=== PATIENT | female | born 1995 | race Caucasian/White ===

== ENCOUNTER 2024-12-02 07:51 | Outpatient (CLI) | payer BC, SELFPAY ==
--- OUTSIDE RECORDS SUMMARY | 2024-12-02 07:53 | XMS_ITS ---
Author Organization [facility] (ClinicalSummary Clone) Address Unknown Care Team Providers Care Freight Claim Investigator Name Role Phone Unavailable Primary Care Physician Unavailab le Results * [UNITY] CARRIER SCREEN Performed by: Meilele Component Value Range Date Sickle Cell Disease/Beta-Thalassemia/Hemo globinopathies carrier screen NEGATIVE 09/09/2024 12:59 pm UTC Alpha-Thalassemia carrier screen NEGATIVE 09/09/2024 12:59 pm UTC Cystic Fibrosis carrier screen NEGATIVE 09/09/2024 12:59 pm UTC Spinal Muscular Atrophy carrier screen NEGATIVE 2 SMN1 copies, SNP not present 09/09/2024 12:59 pm UT For detailed report, see PDF See PDF 09/09/2024 12:59 pm UTC 09/09/2024 12:5 9 pm UT Social History Observation Value Start Date End Date
--- OUTSIDE RECORDS SUMMARY | 2024-12-02 07:53 | XMS_ITS ---
Author Organization [facility] (ClinicalSummary Clone) Address Unknown Care Team Providers Care Embossing Toolsetter Name Role Phone Unavailable Primary Care Physician Unavailab le Results * [UNITY] ANEUPLOIDY NIPT Performed by: Wearable Intelligence Component Value Range Date Fraction 9.6% 08/30/2024 06 :37 am UTC 22q11.2 Microdeletion LOW RISK <1 in 10,000 08/30/2024 06:37 am UTC Sex Chromosome Aneuploidy NOT DETECTED 06:37 am UTC Monosomy X LOW RISK <1 in 10,000 2024 06:37 am UTC Trisomy 13 LOW RISK <1 in 10,000 2024 06:37 am UTC Trisomy 18 LOW RISK <1 in 10,000 2024 06:37 am UTC Trisomy 21 LOW RISK <1 in 10,000 2024 06:37 am UTC Sex FEMALE 08/30/2024 06:3 7 am UTC Gestation QUIJANO 08/31/19 06:37 am UT For detailed report, see PDF See PDF 08/30/2024 06:37 am UTC 08/30/2024 06:3 7 am UT Social History Observation Value Start Date End Date
--- NOTE | 2024-12-02 07:54 | US_ITS ---
PROCEDURE: US OB >= 14 WEEKS FETUS CLINICAL INDICATION: COMPARISON: No exams were available for comparison FINDINGS: Transabdominal sonographic images of the pelvis were obtained. From her established due date she is 29 weeks 4 days. Single viable intrauterine gestation. Cephalic position. Placenta: Posteriorplacenta grade 2. The placenta measures 3.09 cm away from the internal cervical os. ( 3.36 cm away when measured transvaginally. ) There is an average amount of fluid. The cervix appears satisfactory. Closed and measuring 5.67 cm in length when measured transvaginally. Complete survey performed and was unremarkable on the submitted images as in PACS. No discrete anomalies identified on survey imaging by technologist. Active fetus. Three-vessel cord with satisfactory umbilical cord insertion. 4- chamber heart noted. Situs, aortic arch, LVOT, RVOT, three-vessel view appear normal. Survey of brain Unremarkable. Thalamus appears normal. Face and neck survey unremarkable. Profile, nasion, lips and nose appeared normal. Diaphragm and chest views unremarkable. Abdomen: Both kidneys noted and unremarkable. Stomach and bladder noted and satisfactory. Spine: Survey of the spine satisfactory with no anomalies identified nor imaged. Cervical, thoracic, lower spine appear normal. Both arms and legs noted. Amniotic Fluid: Adequate. Measurements: Average ultrasound age 30weeks 0 days. Estimated due date by ultrasound age 1202/10/2025. Estimated weight 1,440g BPD = 30weeks 4days, 68 percentile HC = 29weeks 6days, 20 percent AC = 29weeks 5days, 47 percent FL = 29weeks 5days, 36 percentile Growth Percentile= 41 Heart Rate = 139bpm Humerus = 27weeks 6days HC/AC is 1.07 FL/BPD is 0.74 FL/AC is 0.22 IMPRESSION: 1. Viable fetus in the cephalic presentation with a posterior placenta grade 2. The placenta is seen both transvaginally and transabdominally and measures between 3.09 cm and 3.36 cm away from the internal cervical os. 2. The fluid appears within normal limits. 3. Anatomical scan appears normal although difficult due to the advanced gestational age. 4. The biometry is consistent with the dates. Dictated by: John Zhang MD 12/02/2024 11:04 John Zhang MD in [place] 12/02/2024 11:04
== END 2024-12-02 23:59 | disposition home or self-care (01) ==
LOC: RAD 07:51
DX: Z34.83 Encounter for supervision of other normal pregnancy, third trimester (principal); Z3A.29 29 weeks gestation of pregnancy
CPT/HCPCS: 76805; 76817

== ENCOUNTER 2025-02-10 09:32 | Inpatient (IN) | payer BC, SELFPAY ==
[2025-02-10] MEDS: LACTATED RINGERS 1000ML 1,000 ML 999 ML IV (09:19)
[2025-02-10 09:32] LABS: Hematocrit 36.3 % (37.0-47.0); Hemoglobin 12.4 g/dL (12.2-16.2); Immature Granulocytes % 4.0 %; Mean Corpuscular HGB Conc 34.2 g/dL (31.8-35.4); Mean Corpuscular Hemoglobin 30.8 pg (27.0-31.2); Mean Corpuscular Volume 90.3 fl (81-99); Nucleated Red Blood Cells % 0 %; Platelet Count 336 K/mm3 (142-424); Red Blood Count 4.02 M/mm3 (4.20-5.40); Red Cell Distribution Width-SD 46.0 fL; White Blood Count 21.5 K/mm3 (4.8-10.8)
--- NOTE | 2025-02-10 09:35 | P.HP_ITS ---
History of Present Illness *Admission Date: 02/10/25 *Reason for visit:: Labor *History of present illness: Anna Gaines is a 29yo who presented this morning her her well point pumping supervisor. Pt planned a home but after increased bleeding well point pumping supervisor recommended transfer of care. On arrival pt endorsed painful contractions and movement. She reported clear fluid around 0600 this morning. 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 Reports had an US at 30 weeks gestation, infant was vertex and appropriate size O+, antibody negative, rubella unknown, hepatitis B negative, hepatitis C negative, RPR negative, HIV negative 1 hour GTT: not completed GBS not completed PFSH PFSH Disclaimer: The information contained in this section may have been updated after the patient was seen, as this information can be updated by other users. Social History (Updated 02/10/25 @ 10:08 by Haris Cazares CRNA) Smoking Status: Never smoker alcohol intake: former substance use type: denies use current occupational status: unemployed Travel in the last 8 weeks?: None Have you lived/traveled outside [place] in past 30 days?: No Contact w/someone who lives/traveled outside US past 30 days?: No Exposure to someone with infectious disease in past 14 days?: No Do you have a fever (greater than 100.4 F or 38 C)?: No Have you tested positive for COVID-19?: No Exposed to someone with COVID-19 in past 14 days?: No Do you have a sore throat?: No Do you have a cough?: No Do you have any weakness?: No Do you have any diarrhea?: No Are you experiencing any unusual bleeding?: No Do you have any muscle aches/pain?: No Do you have any abdominal pain?: No Are you experiencing loss of taste or smell?: No Review of Systems Review of Systems Review of systems (narrative): Review of Systems Constitutional: Denies fever, chills, and sweats Eyes: Denies vision change/ pain Respiratory: Denies cough and shortness of breath Cardiovascular: Denies chest pain and lightheadedness Gastrointestinal: Admits abdominal pain with contractions. Denies nausea, vomiting. Genitourinary: Denies dysuria and incontinence Musculoskeletal: Denies shoulder pain and back pain Neurological: Denies change in speech or headaches Meds Home Medications and Allergies Home Medications ?Medication ?Instructions ?Recorded ?Confirmed ?Type No Known Home Medications 02/10/2511/27 History New Prescriptions to Start Prescriptions: Allergies Allergy/AdvReac Type Severity Reaction Status Date / Time No Known Allergies Allergy Verified 02/10/25 09:20 Exam Data for Last 24 hours Vital signs and Labs for Last 24 Hours: Laboratory Results - last 24 hr 02/10/25 09:06: WBC 21.5 H*, RBC 4.02 L, Hgb 12.4, Hct 36.3 L, MCV 90.3, MCH 30.8, MCHC 34.2, RDW 14.1, Plt Count 336, MPV 9.7, Neut % (Auto) 85.3 H, Lymph % (Auto) 5.8 L, [place] % (Auto) 4.1, Eos % (Auto) 0.2, Baso % (Auto) 0.6, Neut # (Auto) 18.4 H, Lymph # (Auto) 1.3, [place] # (Auto) 0.9, Eos # (Auto) 0.0, Baso # (Auto) 0.1 Narrative: General: patient is alert oriented in no acute distress and responds appropriately to questions. HEENT: NCAT, EOMI, moist mucous membranes, neck musa pple with full ROM Cardiovascular: RRR +S1/S2, no murmurs or rubs Pulmonary: Clear to auscultation bilaterally, nonlabored breathing, symmetric chest rise Abdominal: Gravid abdomen appropriate for gestation. No guarding, rebound, or tenderness noted. Extremities: trace edema, no tenderness or cyanosis noted Skin: Normal turgor, intact, warm. Negative for erythema, pallor, petechia, or lesions Neurologic: Negative for sensory or motor deficit Psychiatric: Normal affect, normal thought process, good judgment and insight, no depression or anxious mood appreciated. *Routine HEENT Exam Head: Present normocephalic and atraumatic Eye: Present EOMI, PERRL and normal accommodation; Absent conjunctival icterus, scleral injection, nystagmus or exophthalmos ENT: Present mucous membranes moist *Routine Respiratory Exam Respiratory: Present CTA bilaterally, normal respiratory effort, able to speak in complete sentences and symmetric chest movement; Absent accessory muscle use, decreased breath sounds, rales, respiratory distress, wheezes, distant breath sounds or diminished air movement *Routine Cardiovascular Exam Cardiovascular: Present RRR, Normal S1 and Normal S2; Absent murmur or gallop *Routine Abdominal Exam Abdominal: Present soft and normoactive bowel sounds; Absent tenderness, distended, rebound or guarding *Routine Rectal Exam Rectal:: deferred *Routine Genitalia Exam Genitalia:: normal female Assessment and Plan *Assessment and plan (1) Active labor at term: Status: Acute Category: Medical Plan Foreign Banknote Teller Trader to fax records. - Monitor vitals - Admit to L&D for labor monitoring and delivery - External FHR and TOCO monitor - Exam on admission: /-3 - GBS unknown/ Blood type: O+ - Hemoglobin: 12.4, Plt: 292 - Plan for epidural anesthesia - Anticipate vaginal delivery of female infant: Conchita Llanes On arrival pt evaluated for placental abruption. At arrival no clots noted on exam, minimal bleeding. appropriate for bloody show. Cat I heart rate tracing. continue to monitor pt very closely.
[2025-02-10 09:46] LABS: Alanine Aminotransferase 30 U/L (12-78); Albumin Level 3.9 g/dl (3.5-5.0); Albumin/Globulin Ratio 1.2 (1.1-1.8); Alkaline Phosphatase 145 U/L (38-126); Anion Gap 16.3 mEq/L (5-15); Aspartate Amino Transferase 33 U/L (14-36); Bilirubin,Total 0.6 mg/dl (0.2-1.3); Blood Urea Nitrogen 8 mg/dl (7-17); Calcium 9.4 mg/dl (8.4-10.2); Carbon Dioxide 17 mmol/L (22.0-30.0); Chloride 102 mmol/L (98-107); Creatinine,Serum 0.40 mg/dl (0.52-1.04); Estimated Glomerular Filt Rate 191 ml/min (>60); GFR (African American) 232 ML/MIN (>60); Globulin 3.2 g/dL (1.3-3.2); Glucose 104 mg/dl (74-100); Potassium 4.3 mmoL/L (3.5-5.1); Sodium 131 mmol/L (136-145); Total Protein,Serum 7.1 g/dl (6.3-8.2)
--- NOTE | 2025-02-10 10:07 | P.PNANES_ITS ---
[facility] Disclaimer: The information contained in this section may have been updated after the patient was seen, as this information can be updated by other users. Social History Smoking Status: Never smoker alcohol intake: former substance use type: denies use current occupational status: employed Travel in the last 8 weeks?: None [facility] Anesthesia Checklist Patient Identification Patient Identification: Arm Band and Verbal (Name & ) Structural Data Admitted From: Home Planned Operative Procedure/s: Labor Epidural Consent for Planned Operative Procedure(s) Verified: Yes Verified Documents: Surgical Consent NPO Status Verified Time NPO: 00:00 Chart Verification Results Verified: CBC and BMP Additional verifications Patient : Yes Anesthesia Reactions: No Airway Assessment Mallampati Score:: Class II C-Spine Mobility Assessed: Yes TMJ Mobility Assessed: Yes Dentition: Good Dentition Neurological Assessment Level of Consciousness: Awake, Alert and Appropriate Hx Seizures: No Numbness or tingling in extremities: No Anesthesia Plan Anesthesia Risk discussed: Yes Anesthesia Plan: Verified ASA Class: II Anesthesia Type: Epidural
[2025-02-10 12:03] LABS: RBC Morphology Normal; Total Cells Counted 100
[2025-02-10 12:17] VITALS: BP 133/68; PULSE 96; RESP 18; TEMP 36.6; O2SAT 98; BMI 32.2
[2025-02-10 13:45] LABS: Hematocrit 37.6 % (37.0-47.0); Hemoglobin 12.5 g/dL (12.2-16.2); Immature Granulocytes % 2.1 %; Mean Corpuscular HGB Conc 33.2 g/dL (31.8-35.4); Mean Corpuscular Hemoglobin 30.6 pg (27.0-31.2); Mean Corpuscular Volume 91.9 fl (81-99); Nucleated Red Blood Cells % 0 %; Platelet Count 292 K/mm3 (142-424); Red Blood Count 4.09 M/mm3 (4.20-5.40); Red Cell Distribution Width-SD 47.8 fL; White Blood Count 22.8 K/mm3 (4.8-10.8)
[2025-02-10 14:00] LABS: Activated Partial Thrombo Time 27.5 seconds (22.8-30.6); Fibrinogen 423 mg/dL (229.9-363.5); INR 0.93 (0.9-1.1); Prothrombin Time 10.4 seconds (10.1-12.5)
[2025-02-10 15:00] LABS: D-Dimer 1.16 ug/mL (0.0-0.5)
[2025-02-10] MEDS: OXYTOCIN/RINGERS LACTATE 30 UNITS/500 ML BAG 999 UNITS IV (15:27)
[2025-02-10 15:30] LABS: RPR W/RFX Titers Nonreactive (Nonreactive)
--- NOTE | 2025-02-10 16:40 | P.PCN_ITS ---
Delivery Note Delivery Date:: 02/10/25 Delivery Time:: 15:09 Anesthesia Type: Epidural Was labor medically induced?: No Induction method: none Gestational age (weeks): 39 delivered prior to 39 weeks?: No Gender: Female at 1 minute: 9 at 5 minutes: 9 Delivery Procedure:: Preoperative diagnosis: 1. at 39 completed this weeks gestation, vertex 2. Rh positive 3. GBS unknown 4. Out of hospital activated sludge attendant care Postoperative diagnosis: 1. at 39 completed this weeks gestation, vertex 2. Rh positive 3. GBS unknown 4. Out of hospital activated sludge attendant care EBL: 150mL Specimen: 1. Cord blood Findings: 1. Liveborn viable female infant: Conchita Llanes. Apgars 9/9 at 1 and 5 minutes respectively. Weight pending at time of dictation 2. 2nd degree midline perineal laceration. Periurethral/periclitoral laceration Complications: None Procedure: Nonoperative spontaneous vaginal delivery Anna is a 29-year-old G1, P0 who presented to the emergency department this morning with her activated sludge attendant after laboring at home since Sunday. Reports that she had clear fluid this morning around 6. Reports since then she has had increased bleeding with passage of blood clots. Cooler Supervisor recommended transfer of care to the hospital secondary to increased bleeding and concerns for abruption. Per the activated sludge attendant was uncomplicated without any concerns for - induced hypertension disorders or diabetes. Patient was brought to labor and delivery for evaluation. Category 1 strip noted. Cervical exam revealed that the patient was 5 cm. No clots on exam. Minimal bleeding, appropriate for cervical change noted. Exam and findings were discussed with the patient. She requested to continue to labor. Close monitoring was observed. Patient desires an epidural. Shortly after placing the epidural the patient progressed to complete The infant was noted to be in IRAIS position. With effective maternal pushing there was a nonoperative spontaneous vaginal delivery at 1509. There is no nuchal cord. The anterior left shoulder delivered, followed by the posterior shoulder without dystocia. The body and lower extremities delivered without difficulty. The infant was crying immediately following delivery. The was placed on the maternal abdomen. The patient requested prolonged delayed cord clamping until the cord was white and nonpulsatile. The perineum was inspected and a second-degree midline perineal laceration was noted, 2-0 Vicryl was used to repair the laceration in normal fashion. There was a periurethral/periclitoral laceration which was hemostatic and did not require repair. After greater than 18 minutes the umbilical cord was white and not pulsing, clamp was placed distally and the FOB cut the cord. Cord blood was collected and sent for routine testing. There was a large gush of blood and the placenta was noted to be in the vagina. The placenta delivered with very minimal cord traction and suprapubic contertraction at 1528. Pitocin was started. The uterus was firm and bleeding was minimal. This concluded the delivery. The patient was counseled regarding the events of the delivery and repair. The patient tolerated the delivery well. All counts were correct by nursing. Mother and infant were doing well and bonding upon my leaving the delivery room. Laceration:: vaginal Placental Delivery Description: Spontaneous
[2025-02-10] MEDS: WITCH HAZEL 40 PADS/BOX 1 EACH TP (20:34)
[2025-02-10] MEDS: BENZOCAINE-MENTHOL SPRAY 56GM CAN TP (20:34)
[2025-02-11] MEDS: IBUPROFEN 400 MG TABLET 800 MG PO ×3 (00:02→17:43)
[2025-02-11] MEDS: ACETAMINOPHEN 500MG TAB 1000 MG PO ×3 (00:03→17:42)
[2025-02-11] MEDS: OXYCODONE 5MG IMMEDIATE RELEASE TABLET 5 MG PO (01:57)
[2025-02-11 03:20] VITALS: BP 113/53; PULSE 79; RESP 18; TEMP 37.1; O2SAT 97
[2025-02-11 09:21] LABS: Hematocrit 35.8 % (37.0-47.0); Hemoglobin 11.6 g/dL (12.2-16.2); Immature Granulocytes % 3.6 %; Mean Corpuscular HGB Conc 32.4 g/dL (31.8-35.4); Mean Corpuscular Hemoglobin 30.5 pg (27.0-31.2); Mean Corpuscular Volume 94.2 fl (81-99); Nucleated Red Blood Cells % 0 %; Platelet Count 262 K/mm3 (142-424); Red Blood Count 3.80 M/mm3 (4.20-5.40); Red Cell Distribution Width-SD 50.3 fL; White Blood Count 17.3 K/mm3 (4.8-10.8)
[2025-02-11 11:56] LABS: RBC Morphology Normal; Total Cells Counted 100
--- NOTE | 2025-02-11 16:53 | EXP.DC.SUM ---
General Admission date:: 02/10/25 Discharge date: 02/11/25 HPI HPI HPI: Anna Gaines is a 29yo who presented this morning her her electronics installer. Pt planned a home but after increased bleeding electronics installer recommended transfer of care. On arrival pt endorsed painful contractions and movement. She reported clear fluid around 0600 this morning. Chemical Educator denies any complications. Reports had an US at 30 weeks gestation, infant was vertex and appropriate size O+, antibody negative, rubella unknown, hepatitis B negative, hepatitis C negative, RPR negative, HIV negative 1 hour GTT: not completed GBS not completed Hospital Course Hospital Course Hospital Course: Anna Gaines is a pleasant 29-year-old G1, P1 who delivered a live viable female , Conchita Llanes on 02/10/2025 at 1509. Infant weighed 7 pounds and 7 ounces. Apgars were 9 and 9 at 1 minute and 5 minutes. She has second-degree laceration which was caused her some perineal pain throughout her recovery. She did require 1 dose of oxycodone 5 overnight last night and states that she is still having some perineal pain this morning but states that it is relieved with witch kimberlyn and ice packs. She has done well and has remained afebrile with her at her hospitalization. She is eating and drinking and ambulating. She is breast feeding. Her lochia is normal. She has O Rh+ blood, she is rubella unknown and was group B streptococcus unknown. She will be discharged home to follow-up with Dr. Rendon in 2 weeks time. She will also continue to follow with her electronics installer. She will continue with her vitamins. She will take ibuprofen as well. She was given the usual instructions with respect to limiting her activity, driving and sexual activity. She was given instructions with respect to wound care. Her condition on discharge is stable and improved. Patient reports she has all meds at home and does not require any medications at discharge Exam Data for Last 24 hours Vital signs and Labs for Last 24 Hours: Temp Pulse Resp BP Pulse Ox O2 Del Method 98.7 F 79 18 113/53 L 97 Room Air 02/11/25 03:20 02/11/25 03:20 02/11/25 03:20 02/11/25 03:20 02/11/25 03:20 02/11/25 03:20 Laboratory Results - last 24 hr 02/11/25 08:54: WBC 17.3 H, RBC 3.80 L, Hgb 11.6 L, Hct 35.8 L, MCV 94.2, MCH 30.5, MCHC 32.4, RDW 14.7, Plt Count 262, MPV 9.5, Neut % (Auto) 78.2, Lymph % (Auto) 11.0, [place] % (Auto) 5.9, Eos % (Auto) 1.0, Baso % (Auto) 0.3, Neut # (Auto) 13.5 H, Lymph # (Auto) 1.9, [place] # (Auto) 1.0, Eos # (Auto) 0.2, Baso # (Auto) 0.1, Total Counted 100, Neutrophils % (Manual) 82 H, Band Neutrophils % 1.0, Lymphocytes % (Manual) 9 L, Monocytes % (Manual) 7, Myelocytes % 1, Platelet Estimate Normal, RBC Morphology Normal I & O for Last 24 hours: Intake & Output 02/08/25 02/09/25 02/10/25 02/11/25 23:59 23:59 23:59 23:59 Intake Total 1250 / 1250 Balance 1250 / 1250 Weight 206 lb Constitutional Constitutional: no acute distress *Routine HEENT Exam Head: Present normocephalic Eye: Present EOMI and PERRL ENT: Present mucous membranes moist *Routine Neck Exam Neck: Present supple; Absent lymphadenopathy *Routine Respiratory Exam Respiratory: Present CTA bilaterally *Routine Cardiovascular Exam Cardiovascular: Present RRR *Routine Abdominal Exam Abdominal: Present soft and normoactive bowel sounds; Absent tenderness *Routine Extremities Exam Extremities: Absent cyanosis, clubbing or edema *Routine Skin Exam Skin: Present warm; Absent rash *Routine Neurological Exam Neurological: Present alert and oriented X3 Results Data Completed and Pending Labs on day of discharge: Labs from last 24 hours 02/11/25 08:54 WBC 17.3 H RBC 3.80 L Hgb 11.6 L Hct 35.8 L MCV 94.2 MCH 30.5 MCHC 32.4 RDW 14.7 Plt Count 262 MPV 9.5 Neut % (Auto) 78.2 Lymph % (Auto) 11.0 [place] % (Auto) 5.9 Eos % (Auto) 1.0 Baso % (Auto) 0.3 Neut # (Auto) 13.5 H Lymph # (Auto) 1.9 [place] # (Auto) 1.0 Eos # (Auto) 0.2 Baso # (Auto) 0.1 Total Counted 100 Neutrophils % (Manual) 82 H Band Neutrophils % 1.0 Lymphocytes % (Manual) 9 L Monocytes % (Manual) 7 Myelocytes % 1 Platelet Estimate Normal RBC Morphology Normal DS: Diagnosis Discharge Diagnosis (1) Active labor at term: Status: Acute Meds Home Medications and Allergies Home Medications ?Medication ?Instructions ?Recorded ?Confirmed ?Type No Known Home Medications 02/10/25 02/10/25 History New Prescriptions to Start Prescriptions: Allergies Allergy/AdvReac Type Severity Reaction Status Date / Time No Known Allergies Allergy Verified 02/10/25 09:20 Discharge Plan Disposition Patient Disposition: Home, Self-Care Discharge Order Discharge Orders: Discharge Order (Routine); Ordered 02/11/25 Ordered By: Katja Rendon Follow up Plan Follow up with: Katja Rendon DO [Staff Physician, RECORDS ANALYST] - Enter time for follow up Prescriptions/Medication Reconciliation: No Action No Known Home Medications Problem Reconciliation Problems Reviewed?: Yes Patient Discharge Instructions ACTIVITY: Continue current activity DIET: regular diet Additional Instructions: Congratulations on the delivery of your sweet baby girl. It is my privilege to be a part of your delivery care team and I am so thankful I could be a part of your special day. Discharge: -Take 800 mg Ibuprofen every 8 hours as needed for pain. You can also take 500-1000 mg of Tylenol in between doses, every 6-8 hours. -Colace can be taken 1-2 times per day as you need to soften your stool. Make sure to drink at least 8 cups of water per day. -Iron supplements can make you constipated. You can take iron tablets every other day if constipation is too bad. -Nothing in the vagina for 6 weeks - no intercourse, douching, tampons. No tub baths or swimming pools. -Do not lift greater than 20pounds for 2 weeks, this is the equivalent of 2 gallons of milk. -Reasons to return to L&D or call On-Call doctor - fever (greater than 100.4) - heavy vaginal bleeding (soaking through 1 pad in less than 2 hours or passing clots that are egg sized) - vaginal discharge (malodorous and/or purulent) - severe headaches, leg tenderness/edema, or any other symptoms that warrant immediate medical attention. depression/blues - Normal to feel anxious/overwhelmed for first 2 weeks - Talk to your doctor if: anxiety lasts over 2 weeks, trouble bonding with baby, withdrawing from other family members, thoughts of harming yourself or others Katja Rendon DO [facility] [phone] *Nothing in the Vagina for 6 weeks* *No strenuous activity* *No heavy lifting* *No tub baths until okay's by MD* Print Language: [place]i Providers Primary Care Provider: Daniela Moseley Admit Provider: Katja Rendon Attending Provider: Katja Rendon
[2025-02-12 06:33] LABS: Hepatitis B Surface Antigen Negative (Negative)
[2025-02-12 08:14] LABS: Rubella Antibodies, IgG <0.90 index (Immune >0.99)
[2025-02-12 13:29] LABS: Rapid Plasma Reagin Ab Titer Non Reactive titer (NonRea<1:1)
== END 2025-02-11 19:15 | disposition home or self-care (01) | DRG 807 ==
LOC: OBOUT 09:32 → OB 09:32
PROVIDERS: Admitting Provider Obstetrics & Gynecology; Visit Provider Obstetrics & Gynecology
DX: O70.1 Second degree perineal laceration during delivery (principal); Z37.0 Single live birth; O71.82 Other specified trauma to perineum and vulva; Z3A.39 39 weeks gestation of pregnancy; Z23 Encounter for immunization
CPT/HCPCS: 36415; 59025; 62323; 80053; 85007; 85025; 85378; 85384; 85610; 85730; 86592; 86762; 86787; 86850; 94761; J7120